=== PATIENT | male | born 2000 | race Hispanic/Latino ===

== ENCOUNTER 2020-08-16 15:07 | Emergency (ER) | payer BC ==
--- OUTSIDE RECORDS SUMMARY | 2020-08-16 15:28 | XMS REPORT | Continuity of Care Document ---
:2000 Author Organization [facility] t Address [address] [place] [address] Care Team Providers Name Role Phone Lucien LAST TRIMMER Attending Clinician Doctor Unassigned, Name Attending Clinician Unavailable Problems This patient has no known problems. Allergies, Adverse Reactions, Alerts This patient has no known allergies or adverse reactions. Medications This patient has no known medications. Procedures This patient has no known procedures. Encounters Start End Encounter Admission Attending Care Care Encounter Source Date/Time Date/Time Type Type Clinicians Facility Department ID 2018-11-28 2018-11-28 Telephone de [facility] Wai [id number] 00:00:00 00:00:00 Howard Cesar [id number] [facility] [id number] [facility] [id number] [facility] 2018-11-28 2018-11-28 Orders Doctor ELAINE [id number] 00:00:00 00:00:00 Only UnassignedBECKY [id number] [place] [facility] [id number] Results This patient has no known results.
[2020-08-16 17:14] LABS: SARS-COV-2 RT PCR NEGATIVE (NEGATIVE)
--- NOTE | 2020-08-16 17:53 | RAD REPORT ---
EXAM DESCRIPTION: RAD - Chest Pa And Lat (2 Views) - 08/16/2020 4:35 pm CLINICAL HISTORY: COUGH COMPARISON: None TECHNIQUE: Frontal and lateral views of the chest were obtained. FINDINGS: The lungs are clear. Heart size is normal and central vasculature is within normal limit s. No pleural effusion or pneumothorax seen. No acute bony finding noted. No aortic abnormality. IMPRESSION: No acute cardiopulmonary process.
[2020-08-16] MEDS ORDERED: dexAMETHasone 10 MG/ML VIAL ONE (18:27)
[2020-08-16] MEDS ORDERED: ALBUTEROL 2.5 MG/3 ML NEB SOL ONE (18:27)
[2020-08-16] MEDS ORDERED: IPRATROPIUM BROM 0.5MG/2.5ML ONE (18:28)
--- NOTE | 2020-08-16 19:04 | ER ---
Nurse's Notes [facility] Name: Woody Crum Age: 19 yrs Sex: Male : 2000 Arrival Date: 08/16/2020 Time: 15:36 Bed 27 Private MD: Diagnosis: Bronchitis, not specified as acute or chronic Presentation: 08/16 15:56 Chief complaint: Patient states: Cough x 2 - 3 weeks, congestion and wheezing since ca1 yesterday. Fever yesterday. Coronavirus screen: Client denies travel out of the [place] in the last 14 days. congestion, cough unrelated to allergies, difficulty breathing, Client presents with at least one sign or symptom that may indicate coronavirus-19. Standard/surgical mask placed on the client. Provider contacted for isolation considerations. Ebola Screen: Patient negative for fever greater than or equal to 101.5 degrees Fahrenheit, and additional compatible Ebola Virus Disease symptoms Patient denies exposure to infectious person. Patient denies travel to an Ebola-affected area in the 21 days before illness onset. No symptoms or risks identified at this time. Initial Sepsis Screen: Does the patient meet any 2 criteria? No. Patient's initial sepsis screen is negative. Does the patient have a suspected source of infection? No. Patient's initial sepsis screen is negative. Risk Assessment: Do you want to hurt yourself or someone else? Patient reports no desire to harm self or others. Onset of symptoms was August 16, 2020. 15:56 Method Of Arrival: Ambulatory ca1 15:56 Acuity: FUNMILAYO 3 ca1 Triage Assessment: 15:58 Respiratory: ca1 Historical: - Allergies: 15:58 No Known Allergies; ca1 - Home Meds: 15:58 None [Active]; ca1 - PMHx: 15:58 None; ca1 - PSHx: 15:58 Appendectomy; ca1 - Immunization history:: Flu vaccine is not up to date. - Social history:: Smoking status: Reported history of juuling and/or vaping. Screenin:37 Abuse screen: Denies threats or abuse. Denies injuries from another. Nutritional zb screening: No deficits noted. Tuberculosis screening: No symptoms or risk factors identified. Fall Risk None identified. Assessment: 17:50 Reassessment: ECP at bedside. zb 18:00 General: Appears in no apparent distress. well groomed, Behavior is calm, cooperative, zb appropriate for age, Reports feeling ill for 1-2 days. Pain: Denies pain. Neuro: No deficits noted. Cardiovascular: Capillary refill < 3 seconds Patient's skin is warm and dry. Rhythm is regular. Respiratory: Reports shortness of breath at rest cough that is productive, persistent Airway is patent Respiratory effort is labored. Respiratory: Breath sounds with wheezes bilaterally. Onset: The symptoms/episode began/occurred yesterday, the patient has moderate shortness of breath. GI: No deficits noted. : No deficits noted. EENT: Throat is reddened has enlarged tonsils bilaterally. Derm: Skin is intact, is healthy with good turgor, Skin is dry, Skin is normal, Skin temperature is warm. Musculoskeletal: Circulation, motion, and sensation intact. Range of motion: intact in all extremities. 18:57 Reassessment: Patient appears in no apparent distress at this time. Patient and/or zb family updated on plan of care and expected duration. Pain level reassessed. Patient is alert, oriented x 3, equal unlabored respirations, skin warm/dry/pink. patient states he feels a little bit better. wheezing still present. neb tx completed family at bedside. 19:27 Reassessment: d/c instructions given. patient ambulated out with family. no issues at zb this time. up at [facility]. Vital Signs: 15:56 BP 116 / 66; Pulse 92; Resp 18 S; Temp 97; Pulse Ox 96% on R/A; Weight 79.38 kg (R); ca1 Height 5 ft. 6 in. (167.64 cm) (R); Pain 0/10; 18:36 BP 119 / 67; Pulse 105; Resp 19; Pulse Ox 100% on R/A; Pain 0/10; zb 18:56 BP 127 / 79; Pulse 120; Resp 18; Pulse Ox 99% on R/A; zb 19:29 BP 118 / 54; Pulse 98; Resp 16; Pulse Ox 99% on R/A; zb 15:56 Body Mass Index 28.25 (79.38 kg, 167.64 cm) ca1 ED Course: 15:36 Patient arrived in ED. am2 15:57 Triage completed. ca1 15:58 Arm band placed on right wrist. ca1 16:36 Chest Pa And Lat (2 Views) XRAY In Process Unspecified. EDMS 17:44 Oswaldo Diaz NP is PHCP. pm1 17:44 Itz Cramer MD is Attending Physician. pm1 17:50 Winter Fernandez, NORMAN is Primary Nurse. zb 18:20 Strep swab sent to lab. zb 18:41 Patient has correct armband on for positive identification. Bed in low position. Call zb light in reach. Side rails up X 1. Adult w/ patient. Pulse ox on. NIBP on. Door closed. Noise minimized. 19:28 No provider procedures requiring assistance completed. Patient did not have IV access zb during this emergency room visit. Administered Medications: 18:23 Drug: Decadron (dexamethasone) 10 mg Route: IM; Site: right deltoid; zb 19:00 Follow up: Response: No adverse reaction; Marked relief of symptoms zb 18:23 Drug: Albuterol - atroVENT (ipratropium) (3:1) (2.5 mg - 0.5 mg) 3 ml Route: Nebulizer; zb 19:00 Follow up: Response: No adverse reaction; Marked relief of symptoms zb Outcome: 19:03 Discharge ordered by . pm1 19:28 Discharged to home ambulatory. zb 19:28 Condition: stable 19:28 Discharge instructions given to patient, Instructed on discharge instructions, follow up and referral plans. medication usage, Demonstrated understanding of instructions, follow-up care, medications, Prescriptions given X 3. 19:29 Patient left the ED. zb Signatures: Dispatcher [employer] EDMS Oswaldo Diaz NP INCUBATOR TENDER pm1 Savanah Farfan am2 Italia Martin RN RN ca1 Winter Fernandez RN RN zb Corrections: (The following items were deleted from the chart) 16:32 16:13 Influenza Screen (A \T\ B)+BA.LAB.BRZ drawn and sent. ca1 EDMS 16:32 16:13 CORONAVIRUS+MR.LAB.BRZ drawn and sent. ca1 EDMS
--- NOTE | 2020-08-16 19:04 | EDPHYS ---
Physician Documentation [facility] Name: Woody Crum Age: 19 yrs Sex: Male : 2000 Arrival Date: 08/16/2020 Time: 15:36 Bed 27 Private MD: ED Physician Itz Cramer HPI: 08/16 18:14 This 19 yrs old Male presents to ER via Ambulatory with complaints of pm1 Breathing Difficulty, Wheezing > 1 Year. 18:14 The patient or guardian reports cough, wheezing. Onset: The symptoms/episode pm1 began/occurred 3 week(s) ago. Severity of symptoms: in the emergency department the symptoms are actually worse, onset of wheezing yesterday with subjective fever yesterday. Modifying factors: The symptoms are alleviated by nothing, the symptoms are aggravated by nothing. Associated signs and symptoms: Pertinent positives: sore throat, Pertinent negatives: chest pain, diarrhea, vomiting. The patient has not recently seen a physician. Historical: - Allergies: 15:58 No Known Allergies; ca1 - Home Meds: 15:58 None [Active]; ca1 - PMHx: 15:58 None; ca1 - PSHx: 15:58 Appendectomy; ca1 - Immunization history:: Flu vaccine is not up to date. - Social history:: Smoking status: Reported history of juuling and/or vaping. ROS: 18:14 Cardiovascular: Negative for chest pain, palpitations, and edema. pm1 18:14 Abdomen/GI: Negative for abdominal pain, nausea, vomiting, diarrhea, and constipation, Back: Negative for injury and pain, MS/Extremity: Negative for injury and deformity, Skin: Negative for injury, rash, and discoloration, Neuro: Negative for headache, weakness, numbness, tingling, and seizure. 18:14 Constitutional: Positive for Subjective fever, Negative for poor PO intake. 18:14 ENT: Positive for sore throat, Negative for ear pain. 18:14 Respiratory: Positive for cough, wheezing, Negative for shortness of breath. Exam: 18:14 Constitutional: This is a well developed, well nourished patient who is awake, alert, pm1 and in no acute distress. Head/Face: Normocephalic, atraumatic. 18:14 Back: No spinal tenderness. No costovertebral tenderness. Full range of motion. Skin: Warm, dry with normal turgor. Normal color with no rashes, no lesions, and no evidence of cellulitis. MS/ Extremity: Pulses equal, no cyanosis. Neurovascular intact. Full, normal range of motion. 18:14 Cardiovascular: Exam negative for acute changes, Rate: normal, Rhythm: regular, Pulses: no pulse deficits are appreciated. 18:14 Respiratory: the patient does not display signs of respiratory distress, Respirations: normal, no acute changes, Breath sounds: wheezing: expiratory is heard diffusely. 18:14 Abdomen/GI: Exam negative for acute changes, Inspection: abdomen appears normal, Palpation: abdomen is soft and non-tender, in all quadrants. 18:14 Neuro: Exam negative for acute changes, Orientation: is normal, Mentation: is normal, Motor: is normal, moves all fours. 19:18 Respiratory: Breath sounds: are clear throughout, no bronchial sounds, no decreased pm1 breath sounds, rhonchi, no wheezing, with patient breathing through his nose. Vital Signs: 15:56 BP 116 / 66; Pulse 92; Resp 18 S; Temp 97; Pulse Ox 96% on R/A; Weight 79.38 kg (R); ca1 Height 5 ft. 6 in. (167.64 cm) (R); Pain 0/10; 18:36 BP 119 / 67; Pulse 105; Resp 19; Pulse Ox 100% on R/A; Pain 0/10; zb 18:56 BP 127 / 79; Pulse 120; Resp 18; Pulse Ox 99% on R/A; zb 19:29 BP 118 / 54; Pulse 98; Resp 16; Pulse Ox 99% on R/A; zb 15:56 Body Mass Index 28.25 (79.38 kg, 167.64 cm) ca1 MDM: 17:44 Patient medically screened. pm1 18:18 Data reviewed: vital signs. Data interpreted: Pulse oximetry: on room air is 96 %. pm1 Interpretation: normal. 19:03 Counseling: I had a detailed discussion with the patient and/or guardian regarding: the pm1 historical points, exam findings, and any diagnostic results supporting the discharge/admit diagnosis, lab results, radiology results, the need for outpatient follow up, a rn acute care, to return to the emergency department if symptoms worsen or persist or if there are any questions or concerns that arise at home. 08/16 15:59 Order name: Chest Pa And Lat (2 Views) XRAY; Complete Time: 17:59 ca1 08/16 17:15 Order name: COVID-19/FLU A+B; Complete Time: 17:15 EDMS 08/16 17:59 Order name: Strep; Complete Time: 19:03 pm1 08/16 19:03 Order name: Throat Culture EDMS Administered Medications: 18:23 Drug: Decadron (dexamethasone) 10 mg Route: IM; Site: right deltoid; zb 18:23 Drug: Albuterol - atroVENT (ipratropium) (3:1) (2.5 mg - 0.5 mg) 3 ml Route: Nebulizer; zb Disposition: 08/16/20 19:03 Discharged to Home. Impression: Bronchitis, not specified as acute or chronic. - Condition is Stable. - Discharge Instructions: Acute Bronchitis, Adult, How to Use an Inhaler, Steps to Quit Smoking, Cough, Adult. - Prescriptions for Prednisone 20 mg Oral Tablet - take 3 tablet by ORAL route once daily for 5 days; 15 tablet. Albuterol Sulfate 90 mcg/actuation - inhale 1-2 puff by INHALATION route every 4-6 hours; 1 Inhaler. Bromfed DM 2- 30-10 mg/5 mL Oral syrup - take 10 milliliter by ORAL route every 4 hours As needed; 240 milliliter. - Medication Reconciliation Form, Thank You Letter, Antibiotic Education, Prescription Opioid Use form. - Follow up: Emergency Department; When: As needed; Reason: Worsening of condition. Follow up: Private Physician; When: 2 - 3 days; Reason: Recheck today's complaints, Continuance of care, Re-evaluation by your physician. - Problem is new. - Symptoms have improved. Signatures: Dispatcher [employer] EDMS Vero Lawrence, BUILDING CONSTRUCTION IRONWORKER-C BUILDING CONSTRUCTION IRONWORKER-Ckb Oswaldo Diaz, DRUG SAFETY DATA MANAGEMENT SPECIALIST DRUG SAFETY DATA MANAGEMENT SPECIALIST pm1 Italia Martin RN RN ca1 Brown, Zipporah, RN RN zb Corrections: (The following items were deleted from the chart) 16:32 16:00 Influenza Screen (A \T\ B)+BA.LAB.BRZ ordered. EDMS EDMS 16:32 16:00 CORONAVIRUS+MR.LAB.BRZ ordered. EDMS EDMS 19:29 19:03 08/16/2020 19:03 Discharged to Home. Impression: Bronchitis, not specified as zb acute or chronic. Condition is Stable. Discharge Instructions: Acute Bronchitis, Adult, How to Use an Inhaler, Steps to Quit Smoking, Cough, Adult. Prescriptions for Prednisone 20 mg Oral Tablet - take 3 tablet by ORAL route once daily for 5 days; 15 tablet, Albuterol Sulfate 90 mcg/actuation - inhale 1-2 puff by INHALATION route every 4-6 hours; 1 Inhaler. and Forms are Medication Reconciliation Form, Thank You Letter, Antibiotic Education, Prescription Opioid Use. Follow up: Emergency Department; When: As needed; Reason: Worsening of condition. Follow up: Private Physician; When: 2 - 3 days; Reason: Recheck today's complaints, Continuance of care, Re-evaluation by your physician. Problem is new. Symptoms have improved. pm1
[2020-08-16 19:41] VITALS: TEMP 97
[2020-08-16 19:44] VITALS: O2SAT 99
[2020-08-16 19:45] VITALS: BP 118/54
== END 2020-08-16 19:29 | disposition home or self-care (01) ==
LOC: ER 15:07
DX: J40 Bronchitis, not specified as acute or chronic (principal); Z20.822 Contact with and (suspected) exposure to COVID-19; F17.290 Nicotine dependence, other tobacco product, uncomplicated
CPT/HCPCS: 87070; 87081; 0240U; 71046; 96372; 99284; J1100